=== PATIENT | female | born 1960 | race Caucasian/White ===

== ENCOUNTER 2020-10-12 06:50 | Day surgery (SDC) | payer MEDICARE, MEDICAID ==
[2020-10-05 15:49] LABS: BASOPHILS # (AUTO) 0.1 X10'3 (0-0.2); BASOPHILS % (AUTO) 0.6 % (0-1); EOSINOPHILS # (AUTO) 0.2 X10'3 (0-0.9); EOSINOPHILS % (AUTO) 1.9 % (0-6); LYMPHOCYTES # (AUTO) 2.9 X10'3 (1.1-4.8); MEAN CORPUSCULAR HEMOGLOBIN 31.7 PG (27.0-31.0); MEAN CORPUSCULAR HGB CONC 34.4 g/dL (33.0-36.5); MEAN CORPUSCULAR VOLUME 92.1 FL (78-98); MEAN PLATELET VOLUME 8.6 FL (7.4-10.4); MONOCYTES # (AUTO) 0.6 X10'3 (0-0.9); MONOCYTES % (AUTO) 6.7 % (2-12); NEUTROPHILS # (AUTO) 5.6 X10'3 (1.8-7.7); NEUTROPHILS % (AUTO) 59.8 % (42-75); PRE OP HEMATOCRIT 41.5 % (35.0-45.0); PRE OP HEMOGLOBIN 14.2 g/dL (12.0-16.0); PRE OP PLATELET COUNT 326 X10'3 (140-440); RED CELL DISTRIBUTION WIDTH 13.6 % (11.5-14.5)
[2020-10-05 16:07] LABS: ALBUMIN 3.9 G/DL (3.4-5.0); ALBUMIN/GLOBULIN RATIO 1.2 (1.1-1.5); ALKALINE PHOSPHATASE 138 IU/L (46-116); BLOOD UREA NITROGEN 9 MG/DL (7-18); BUN/CREATININE RATIO 13.6 (6.6-38.0); CALCIUM 9.1 MG/DL (8.5-10.1); CHLORIDE 106 MMOL/L (99-107); CREATININE 0.66 MG/DL (0.40-0.90); PRE OP ALT 54 U/L (30-65); PRE OP ANION GAP 7 (8-16); PRE OP AST 26 U/L (10-37); PRE OP BILIRUB, TOTAL 0.4 MG/DL (0.0-1.0); PRE OP GLUCOSE 90 MG/DL (70-104); PRE OP POTASSIUM 3.9 MMOL/L (3.4-5.1); PRE OP SODIUM 141 MMOL/L (135-145); TOTAL PROTEIN 7.2 G/DL (6.4-8.2); eGFR > 90 ML/MIN
[~2020-10-12] VITALS: Ht 160 cm; Wt 73.9 kg
[2020-10-12] VITALS (8 sets, daily range): BP systolic 93–109; BP diastolic 60–80
[~2020-10-12 06:50] MED LIST: albuterol 2.5 MG/3 ML nebule NEB ONE; ceFAZolin 2gm in dextrose, iso 50 ML IV ONE; famotidine 20mg tablet PO ONE; ringers solution, lacted 1,000 ML IV SCH
[2020-10-12] MEDS ORDERED: LIDOcaine 0.5% (5mg/ml) 50ml vial ONE (07:16)
[2020-10-12] MEDS ORDERED: CYCL-1 PO (08:02)
[2020-10-12] MEDS ORDERED: IBUP-1985 PO (08:02)
[2020-10-12] MEDS ORDERED: FLUT16SP20 NS (08:02)
[2020-10-12] MEDS ORDERED: hydrALAZINE 20mg/ml inj. IV PRN (09:15)
[2020-10-12] MEDS ORDERED: ringers solution, lacted 1,000 ML IV SCH (09:15)
[2020-10-12] MEDS ORDERED: labetalol 20mg/4ml (5mg/ml) syringe IV PRN (09:15)
[2020-10-12] MEDS ORDERED: morphine 4 MG/ML inj SYRINge IV PRN (09:15)
[2020-10-12] MEDS ORDERED: morphine 2 MG/ML inj. syringe IV PRN (09:15)
[2020-10-12] MEDS ORDERED: fentaNYL/PF 50MCG/1 ML 2ML syringe IV PRN ×2 (09:15)
[2020-10-12] MEDS ORDERED: ondansetron/PF 4mg/2ml inj IV PRN (09:15)
[2020-10-12] MEDS ORDERED: LIDOcaine 1% (10mg/ml) 2ml vial ONE (09:59)
[2020-10-12] MEDS ORDERED: LIDOcaine 1% W/epiNEPHrine 1:200,000 10ml vial ONE (09:59)
[2020-10-12] MEDS ORDERED: BUPIVAcaine/PF 2.5mg/ml (0.25%) 10ml vial ONE (09:59)
[2020-10-12] MEDS ORDERED: fentaNYL/PF 50MCG/1 ML 2ML syringe ONE ×2 (10:00→10:31)
[2020-10-12] MEDS ORDERED: MIDAZolam 1mg/ml 10ml vial ONE (10:00)
[2020-10-12] MEDS ORDERED: LIDOcaine 2% (20mg/ml) 5ml vial ONE (10:02)
[2020-10-12] MEDS ORDERED: propofol inj 20 ML IV ONE (10:38)
[2020-10-12] MEDS ORDERED: ketorolac trometh. 30mg/ml inj. ONE (10:50)
--- NOTE | 2020-10-12 10:54 | NUR ---
Received from OR via TAL, accompanied by Anesthesiologist DR ALLEN and report given by Anesthesiologist. PT DROWSY, BUT APPROPRIATE, RIGHT THUMB W/FOAM COVERING DRSG/INCISION CDI, LEFT HAND/WRIST W/BIAS WRAP COVERING INCISION/DRSG CDI. FINGER PWD, HARBOR MASTER 1-2 SECONDS. Addendum: 10/12/20 at 1121 by Muriel Pacheco RN Amended: Links added.
--- NOTE | 2020-10-12 12:04 | NUR ---
PT ABLE TO SAFELY AMBULATE, D/C INSTRUCTIONS GIVEN AND GONE OVER W/PT WHO VERBALIZED UNDERSTANDING, PT D/CD TO HOME VIA W/C TO PRIVATE VEHICLE W/O INCIDENT. Addendum: 10/12/20 at 1214 by Muriel Pacheco RN Amended: Links added.
== END 2020-10-12 12:04 | disposition home or self-care (01) ==
LOC: PAS 06:50
PROVIDERS: ATTEND Orthopaedic Surgery Hand Surgery
DX: S63.592A Other specified sprain of left wrist, initial encounter (principal); D21.11 Benign neoplasm of connective and other soft tissue of right upper limb, including shoulder; E78.5 Hyperlipidemia, unspecified; G89.4 Chronic pain syndrome; M17.11 Unilateral primary osteoarthritis, right knee; F32.9 Major depressive disorder, single episode, unspecified; F17.210 Nicotine dependence, cigarettes, uncomplicated; G43.909 Migraine, unspecified, not intractable, without status migrainosus; E66.9 Obesity, unspecified; Z68.28 Body mass index [BMI] 28.0-28.9, adult; Z88.7 Allergy status to serum and vaccine; Z98.890 Other specified postprocedural states; Z98.1 Arthrodesis status; Z90.710 Acquired absence of both cervix and uterus; Z20.828 Contact with and (suspected) exposure to other viral communicable diseases; Z79.899 Other long term (current) drug therapy; Z83.3 Family history of diabetes mellitus; Z80.9 Family history of malignant neoplasm, unspecified; X58.XXXA Exposure to other specified factors, initial encounter; Y93.89 Activity, other specified; Y92.89 Other specified places as the place of occurrence of the external cause; Y99.8 Other external cause status
CPT/HCPCS: 26115; 29846; 36415; 80053; 82948; 85025; 87635; 93005; J1885; J2001; J2250; J2270; J2704; J3010; J3490; J7120; A4215; A7000

== ENCOUNTER 2021-07-07 05:27 | Inpatient (IN) | payer MEDICARE, MEDICAID ==
[2021-06-24 13:20] LABS: CLARITY,URINE CLEAR (Clear); COLOR,URINE YELLOW (Yellow); GLUCOSE, URINE NEGATIVE (Neg); KETONES,URINE NEGATIVE (Neg); LEUKOCYTE ESTERASE ,URINE NEGATIVE (Neg); NITRITES, URINE NEGATIVE (Neg); OCCULT BLOOD,URINE NEGATIVE (Neg); PROTEIN,URINE NEGATIVE (Neg); UROBILINOGEN,URINE 0.2 E.U/dL (0.2-1.0)
[2021-06-24 13:22] LABS: UA COLLECTION TYPE CLN CATCH MIDSTREAM
[2021-06-24 13:25] LABS: BASOPHILS # (AUTO) 0.1 X10'3 (0-0.2); BASOPHILS % (AUTO) 0.9 % (0-1); EOSINOPHILS # (AUTO) 0.1 X10'3 (0-0.9); EOSINOPHILS % (AUTO) 1.6 % (0-6); LYMPHOCYTES # (AUTO) 2.6 X10'3 (1.1-4.8); LYMPHOCYTES % (AUTO) 27.6 % (21-51); MEAN CORPUSCULAR HEMOGLOBIN 31.2 PG (27.0-31.0); MEAN CORPUSCULAR HGB CONC 33.9 g/dL (33.0-36.5); MEAN CORPUSCULAR VOLUME 92.1 FL (78-98); MEAN PLATELET VOLUME 9.4 FL (7.4-10.4); MONOCYTES # (AUTO) 0.5 X10'3 (0-0.9); MONOCYTES % (AUTO) 5.1 % (2-12); NEUTROPHILS # (AUTO) 6.1 X10'3 (1.8-7.7); NEUTROPHILS % (AUTO) 64.8 % (42-75); PRE OP HEMATOCRIT 43.5 % (35.0-45.0); PRE OP HEMOGLOBIN 14.7 g/dL (12.0-16.0); PRE OP PLATELET COUNT 291 X10'3 (140-440); RED BLOOD COUNT 4.72 X10'6 (4.20-5.60)
[2021-06-24 13:33] LABS: ALBUMIN 3.8 G/DL (3.4-5.0); ALBUMIN/GLOBULIN RATIO 1.2 (1.1-1.5); ALKALINE PHOSPHATASE 148 IU/L (46-116); BLOOD UREA NITROGEN 8 MG/DL (7-18); BUN/CREATININE RATIO 12.1 (6.6-38.0); CALCIUM 8.9 MG/DL (8.5-10.1); CHLORIDE 105 MMOL/L (99-107); CREATININE 0.66 MG/DL (0.40-0.90); PRE OP ALT 33 U/L (30-65); PRE OP ANION GAP 6 (8-16); PRE OP AST 21 U/L (10-37); PRE OP BILIRUB, TOTAL 0.3 MG/DL (0.0-1.0); PRE OP GLUCOSE 113 MG/DL (70-104); PRE OP POTASSIUM 4.1 MMOL/L (3.4-5.1); PRE OP SODIUM 141 MMOL/L (135-145); TOTAL CARBON DIOXIDE 29.6 MMOL/L (24-32); TOTAL PROTEIN 6.9 G/DL (6.4-8.2); eGFR > 90 ML/MIN
[~2021-07-07] VITALS: Ht 160 cm; Wt 70.5 kg
[2021-07-07] VITALS (13 sets, daily range): BP systolic 102–131; BP diastolic 57–71
[~2021-07-07 05:27] MED LIST changes: +CYCL-1 PO; +FLUT16SP20 NS; +IBUP-1985 PO; -albuterol 2.5 MG/3 ML nebule NEB ONE; +albuterol 2.5 MG/3 ML nebule NEB PRN; -ceFAZolin 2gm in dextrose, iso 50 ML IV ONE; -famotidine 20mg tablet PO ONE
[2021-07-07] MEDS ORDERED: tranexamic acid inj. 700 MG in normal saline 100ml IV soln 93 ML IV ONE (05:30)
[2021-07-07] MEDS ORDERED: vancomycin 1,500 MG in NS 300ml IV soln IV ONE (05:30)
[2021-07-07] MEDS ORDERED: cefazolin/dext.iso 2gm/100ml IV ONE (05:30)
[2021-07-07] MEDS ORDERED: albuterol 2.5 MG/3 ML nebule NEB PRN (05:30)
[2021-07-07] MEDS ORDERED: famotidine 20mg tablet PO ONE (05:30)
[2021-07-07 06:43] LABS: PRE OP PARTIAL THROMB. TIME 27 SECONDS (22-32)
[2021-07-07] MEDS ORDERED: ketorolac trometh. 30mg/ml inj. ONE (06:48)
[2021-07-07] MEDS ORDERED: ROPIVAcaine 0.5% (5mg/ml) 30ml vial ONE ×2 (06:49→08:36)
[2021-07-07] MEDS ORDERED: epiNEPHrine 1 mg/ml inj ONE (06:49)
[2021-07-07] MEDS ORDERED: vancomycin 1,000mg inj ONE (06:49)
[2021-07-07] MEDS ORDERED: morphine 10mg/ml inj. ONE ×3 (06:49→09:28)
[2021-07-07] MEDS ORDERED: midazolam 1 mg/ML 2ml injection ONE (07:13)
[2021-07-07] MEDS ORDERED: fentaNYL /PF 50mcg/ml 5ml ampule ONE (07:13)
[2021-07-07] MEDS ORDERED: ondansetron/PF 4mg/2ml inj ONE (07:14)
[2021-07-07] MEDS ORDERED: LIDOcaine 2% (20mg/ml) 5ml vial ONE (07:14)
[2021-07-07] MEDS ORDERED: dexamethasone sod phosphate 4mg/ml inj. ONE (07:14)
[2021-07-07] MEDS ORDERED: propofol inj 20 ML IV ONE (07:14)
[2021-07-07] MEDS ORDERED: fentaNYL/PF 50MCG/1 ML 2ML syringe IV PRN ×2 (07:20)
[2021-07-07] MEDS ORDERED: morphine 2 MG/ML inj. syringe IV PRN (07:20)
[2021-07-07] MEDS ORDERED: ringers solution, lacted 1,000 ML IV SCH (07:20)
[2021-07-07] MEDS ORDERED: labetalol 20mg/4ml (5mg/ml) syringe IV PRN (07:20)
[2021-07-07] MEDS ORDERED: hydrALAZINE 20mg/ml inj. IV PRN (07:20)
[2021-07-07] MEDS ORDERED: ondansetron/PF 4mg/2ml inj IV PRN ×2 (07:20→10:45)
[2021-07-07] MEDS ORDERED: morphine 4 MG/ML inj SYRINge IV PRN (07:20)
[2021-07-07] MEDS ORDERED: ROPIVAcaine 0.2% (10 MG/5 ML) BOLUS INJECTION ADDCANAL PRN (07:20)
[2021-07-07] MEDS ORDERED: ROPIVAcaine 0.2%/PF PUMP/bolus 545 ML ADDCANAL SCH (07:20)
[2021-07-07] MEDS ORDERED: hydrALAZINE 20mg/ml inj. IV ONE (08:53)
[2021-07-07] MEDS ORDERED: sevoflurane 250ml liquid IH ONE (09:23)
--- NOTE | 2021-07-07 10:04 | NUR ---
Received from OR via ORTHO BED WITH IAJAQUAN , accompanied by Anesthesiologist ALEJANDRO and report given by Anesthesiolgist. PATIENT WITH 18G PIV IN RIGHT UE RUNNING LR AT 100. RIGHT LE WITH NERVE BLOCK SITE-0 ON Q ATTACHED. + DORSLAIS PEDIS. KNEE WRAP AND POWDER PACK IN PLACE. NO C.O. AT THIS TIME. 100% ON 10L MASKN. Addendum: 07/07/21 at 1022 by Gonzalez Taylor RN, RN Amended: Links added.
[2021-07-07] MEDS ORDERED: fluticasone nasal spray 16GM bottle NS PRN (10:40)
[2021-07-07] MEDS ORDERED: oxyCODONE IR 5mg (immed. release) tablet PO PRN (10:45)
[2021-07-07] MEDS ORDERED: magnesium hydroxide 30ml (MOM) UD suspension PO PRN (10:45)
[2021-07-07] MEDS ORDERED: bisacodyl 10mg suppository rectal RC PRN (10:45)
[2021-07-07] MEDS ORDERED: diphenhydrAMINE 25mg capsule PO PRN ×2 (10:45)
[2021-07-07] MEDS ORDERED: acetaminophen 325mg tablet PO PRN (10:45)
--- NOTE | 2021-07-07 11:14 | NUR ---
PATIENT HAS MET ALL CRITERIA FOR TRANSFER TO THE SURGICAL/[facility]/PCU/ORTHO/ICU FLOOR. VSS. DRESSINGS INTACT. BED LOW, CALL LIGHT PRESENT AND 2 RAILS UP. RN PRESENT TO ACCEPT CARE OF PATIENT AND REPORT HAS BEEN CALLED. ALL QUESTIONS ANSWERED TO ACCEPTING RN CHRISTIAN. Addendum: 07/07/21 at 1126 by Gonzalez Etienne - DULCE RN Amended: Links added.
[2021-07-07] MEDS: oxyCODONE IR 5mg (immed. release) tablet PO PRN ×2 (12:15→20:11)
[2021-07-07] MEDS: gabapentin 300mg capsule PO SCH ×2 (12:16→20:10)
[2021-07-07] MEDS: cyclobenzaprine 10mg tablet PO SCH ×2 (12:16→20:10)
--- NOTE | 2021-07-07 13:11 | NUR ---
pt refusing post op vitals at this time, very agitated, states she wants to leave. will cont to monitor Addendum: 07/07/21 at 1312 by Radha Ashford RN Amended: Links added.
[2021-07-07] MEDS: acetaminophen 325mg tablet PO SCH ×2 (15:01→20:10)
[2021-07-07] MEDS: nicotine 21mg patch - 24 hr TD SCH (15:02)
[2021-07-07] MEDS: potassium cl 20mEq in 1/2 NS 1,000 ML IV SCH ×2 (18:45→20:14)
--- NOTE | 2021-07-07 18:52 | NUR ---
Patient in room ORTHO 4013. I have received report from Liz CARDONA and had the opportunity to ask questions and assume patient care.
[2021-07-07] MEDS ORDERED: sennosides 8.6mg tablet PO SCH (21:00)
[2021-07-08] MEDS: acetaminophen 325mg tablet PO SCH ×2 (01:34→07:42)
[2021-07-08] MEDS: oxyCODONE IR 5mg (immed. release) tablet PO PRN ×2 (01:34→05:24)
[2021-07-08 02:30] VITALS: BP 111/69
[2021-07-08] MEDS: potassium cl 20mEq in 1/2 NS 1,000 ML IV SCH (02:45)
[2021-07-08 06:00] VITALS: BP 116/68
--- NOTE | 2021-07-08 06:07 | NUR ---
Problems reprioritized. Patient report given, questions answered & plan of care reviewed with Amber CARDONA.
--- NOTE | 2021-07-08 06:16 | NUR ---
Patient in room ORTHO 4013. I have received report from DULCE martinez and had the opportunity to ask questions and assume patient care.
[2021-07-08] MEDS: cyclobenzaprine 10mg tablet PO SCH (07:39)
[2021-07-08] MEDS: gabapentin 300mg capsule PO SCH (07:40)
[2021-07-08] MEDS: nicotine 21mg patch - 24 hr TD SCH (07:41)
[2021-07-08] MEDS ORDERED: aspirin 325mg tablet PO SCH (08:30)
--- NOTE | 2021-07-08 10:30 | NUR ---
Pt discharged home, reviewed medications, educational materials, f/u appt-pt agreeable. Removed PIV R hand with no complications, tip intact. 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
[2021-07-08] MEDS ORDERED: celeCOXIB 100mg capsule PO SCH (20:00)
[2021-07-09] MEDS ORDERED: acetaminophen 325mg tablet PO PRN (10:45)
== END 2021-07-08 10:35 | disposition home or self-care (01) | DRG 468 ==
LOC: PAS IN 05:27 → UNDOADMIN 05:27 → PAS IN 10:59 → ORTHO 4S 11:40
PROVIDERS: ADMIT Orthopaedic Surgery; ATTEND Orthopaedic Surgery
PROC: 0SRC0L9 Replacement of Right Knee Joint with Medial Unicondylar Synthetic Substitute, Cemented, Open Approach (ICD-10-PCS; 2021-07-07)
PROC: 3E0T3BZ Introduction of Anesthetic Agent into Peripheral Nerves and Plexi, Percutaneous Approach (ICD-10-PCS; 2021-07-07)
PROC: 3E0T33Z Introduction of Anti-inflammatory into Peripheral Nerves and Plexi, Percutaneous Approach (ICD-10-PCS; 2021-07-07)
PROC: 0SPC0LZ Removal of Medial Unicondylar Synthetic Substitute from Right Knee Joint, Open Approach (ICD-10-PCS; principal; 2021-07-07 07:23)
DX: T84.032A Mechanical loosening of internal right knee prosthetic joint, initial encounter (principal); Y83.8 Other surgical procedures as the cause of abnormal reaction of the patient, or of later complication, without mention of misadventure at the time of the procedure; Y92.89 Other specified places as the place of occurrence of the external cause
CPT/HCPCS: 36415; 73560; 80053; 81003; 82948; 85025; 85610; 85730; 87081; 93005; 94640; 94664; 94760; 97161; 97530; A4215; A7000; C1713; C1776; C9520; G0378; J0171; J0360; J1100; J1885; J2001; J2250; J2270; J2405; J2704; J2795; J3010; J3370; J3480; J7040; J7120; U0003; U0005